=== PATIENT | male | born 1985 | race Caucasian/White ===

== ENCOUNTER 2018-07-26 18:02 | Emergency (ER) | payer MEDICAID ==
[2018-07-26] MEDS: HYDROCODONE/APAP (5/325) TAB PO (21:10)
== END 2018-07-26 22:12 | disposition home or self-care (01) ==
LOC: FTE 18:02
DX: S69.92XA Unspecified injury of left wrist, hand and finger(s), initial encounter (principal); W20.8XXA Other cause of strike by thrown, projected or falling object, initial encounter; Y92.9 Unspecified place or not applicable
CPT/HCPCS: 11740; 73130-LT; 99283-25